=== PATIENT | female | born 2000 | race Caucasian/White ===

== ENCOUNTER 2023-07-14 08:07 | Emergency (ER) | payer OTHER ==
[2023-07-14 09:42] LABS: Absolute Eosinophils 0.1 K/uL (0-0.5); Absolute Lymphocytes (CBC) 1.4 K/uL (0.7-4.9); Absolute Monocytes 0.6 K/uL (0.1-1.3); Absolute Neutrophil 7.3 K/uL (1.8-8.0); Basophils % 0.4 % (0-1.3); Eosinophils % 0.9 % (0-4.4); Hematocrit 34.7 % (36.0-45.0); Lymphocytes % 14.6 % (15.3-44.8); MCHC 34.7 g/dL (32.0-36.0); MCV 86.6 fL (80-100); MPV 9.5 fL (7.6-11.3); Monocytes % 6.3 % (3.3-12.3); Neutrophils % 77.8 % (41.7-73.7); Platelets 235 thou/uL (152-406); RBC Red Blood Cell Count 4.01 M/uL (3.86-4.86); Red Cell Distribution Width 15.3 % (12.1-15.2)
[2023-07-14 09:47] LABS: Specific Gravity 1.018 (1.005-1.030); Sqamous Epithelial <5 /HPF (None Seen); Urine Bacteria <20 /HPF (<20); Urine Bilirubin NEGATIVE (Negative); Urine Blood Negative (Negative); Urine Clarity Turbid (Clear); Urine Color Light-Yellow (Yellow); Urine Culture Reflex Order NOT NEEDED; Urine Glucose NEGATIVE (Negative); Urine Ketones NEGATIVE (Negative); Urine Microscopic Reflex YN ORDER UMIC; Urine Nitrite NEGATIVE (Negative); Urine Protein NEGATIVE (Negative); Urine RBC <5 /HPF (None Seen); Urine Urobilinogen Normal (Normal); Urine pH 6.5 (5.0-7.0)
[2023-07-14 10:04] LABS: Albumin 3.1 g/dL (3.4-5.0); Albumin/Globulin Ratio 0.8 (1.1-1.8); Anion Gap 5.7 mEq/L (5.0-15.0); Bilirubin Total 0.4 mg/dL (0.2-1.0); Globulin 3.7 g/dL (2.3-3.5); Potassium 3.7 mEq/L (3.5-5.1); Protein, Total 6.8 g/dL (6.4-8.2)
--- NOTE | 2023-07-14 10:44 | RAD REPORT ---
EXAM DESCRIPTION: US - OB Limited - 07/14/2023 9:16 am CLINICAL HISTORY: ABD PAIN COMPARISON: No comparisons TECHNIQUE: Sonographic grayscale and color flow images of a first-trimester were obtained through approach. FINDINGS: A single live intrauterine is identified. Fetus in cephalic position. Femur length measures 33.6 millimeters, corresponding to gestational age of 20 weeks, 4 days. heart rate: 148 BPM. Subjectively normal amniotic fluid volume. Placenta has formed anteriorly. Internal cervical os is closed. No evidence of placenta previa. Left ovarian 5.0 x 4.2 x 3.9 cm anechoic dominant cyst. Right ovary is not well visualized. No suspic ious adnexal masses. No free fluid. IMPRESSION: 1. Single live intrauterine . 2. Calculated gestational age: 20 weeks, 4 days. Estimated due date by ultrasound: 11/27/2023. 3. Incidentally noted dominant left ovarian 5 cm anechoic cyst.
--- NOTE | 2023-07-14 11:29 | ER ---
Nurse's Notes [facility] Name: Billy Krishna Age: 22 yrs Sex: Female : 2000 Arrival Date: 07/14/2023 Time: 08:07 Bed 7 Private MD: Diagnosis: 20 weeks gestation of ;Abdominal pain in Presentation: 07/13 08:37 Chief complaint: Patient states: she started having right lower abdominal and back ap3 cramping early this morning that she reports as constant. patient reports normal urination, denies nausea and vomiting. Coronavirus screen: At this time, the client does not indicate any symptoms associated with coronavirus-19. Ebola Screen: No symptoms or risks identified at this time. Initial Sepsis Screen: Does the patient meet any 2 criteria? No. Patient's initial sepsis screen is negative. Does the patient have a suspected source of infection? No. Patient's initial sepsis screen is negative. Risk Assessment: Do you want to hurt yourself or someone else? Patient reports no desire to harm self or others. Onset of symptoms was July 14, 2023. 08:37 Method Of Arrival: Ambulatory ap3 08:37 Acuity: MARITZA 3 ap3 Triage Assessment: 08:41 General: Appears in no apparent distress. Behavior is calm, cooperative, appropriate ap3 for age. Pain: Complains of pain in left lower quadrant Pain currently is 7 out of 10 on a pain scale. Pain began this morning. Neuro: Level of Consciousness is awake, alert, obeys commands, Oriented to person, place, time, situation. Cardiovascular: Patient's skin is warm and dry. Respiratory: Airway is patent Respiratory effort is even, unlabored, Respiratory pattern is regular, symmetrical. GI: Abdomen is non-distended. Historical: - Allergies: 08:42 CEPHALOSPORINS; ap3 - Home Meds: 08:40 None [Active]; ap3 - PMHx: 08:40 None; ap3 - PSHx: 08:40 None; ap3 - Immunization history:: Adult Immunizations up to date. - Infectious Disease History:: Denies. - Social history:: Smoking status: Patient denies any tobacco usage or history of. Screenin:43 Abuse screen: Denies threats or abuse. Nutritional screening: No deficits noted. ap3 Tuberculosis screening: No symptoms or risk factors identified. 11:46 [facility] ED Fall Risk Assessment (Adult) History of falling in the last 3 months, ph including since admission No falls in past 3 months (0 pts) Confusion or Disorientation No (0 pts) Intoxicated or Sedated No (0 pts) Impaired Gait No (0 pts) Mobility Assist Device Used No (0 pt) Altered Elimination No (0 pt) Score/Fall Risk Level 0 - 2 = Low Risk Oriented to surroundings, Maintained a safe environment, Hourly rounding (assess needs \T\ fall precautionary measures) done. Assessment: 09:36 Neuro: No deficits noted. Level of Consciousness is awake, alert, obeys commands, ld2 Oriented to person, place, time, Crime Scene Photographer are equal bilaterally. Cardiovascular: No deficits noted. Respiratory: Airway is patent Trachea midline Respiratory effort is even, unlabored, Respiratory pattern is regular, symmetrical. GI: Abdomen is flat, non-distended, Bowel sounds present X 4 quads. Abd is soft Abdomen is tender to palpation in right lower quadrant and left lower quadrant Reports. GI: Pt states having bilateral lower abdominal cramping present x2 days. Pt denies vaginal discharge or bleeding. : No deficits noted. No signs and/or symptoms were reported regarding the genitourinary system. Denies burning with urination, discharge, vaginal bleeding. Musculoskeletal: No deficits noted. No signs and/or symptoms reported regarding the musculoskeletal system. 11:45 Reassessment: Patient appears in no apparent distress at this time. Patient and/or ph family updated on plan of care and expected duration. Pain level reassessed. Patient is alert, oriented x 3, equal unlabored respirations, skin warm/dry/pink. Vital Signs: 08:37 BP 124 / 76; Pulse 61; Resp 17; Temp 98.1; Pulse Ox 98% ; Weight 87.09 kg; ap3 11:27 BP 106 / 56; Pulse 71; Resp 18; Pulse Ox 99% on R/A; ph ED Course: 08:15 Patient arrived in ED. mg5 08:28 Kushal Flores DO is Attending Physician. ms3 08:40 Triage completed. ap3 08:43 Arm band placed on left wrist. ap3 08:48 Sirisha Ernandez, RN is Primary Nurse. ph 09:18 US OB Limited In Process Unspecified. EDMS 09:38 No apparent distress. Resting quietly. Awaiting lab results. ld2 09:38 Patient has correct armband on for positive identification. Allergy band placed. Bed in ld2 low position. Call light in reach. Side rails up X 1. Door closed. Noise minimized. Warm blanket given. Verbal reassurance given. 09:38 Inserted saline lock: 20 gauge in left antecubital area, using aseptic technique. Blood ld2 collected. 09:39 CBC with Diff Sent. ld2 09:39 CMP Sent. ld2 09:39 Urinalysis w/ reflexes Sent. ld2 11:45 No provider procedures requiring assistance completed. IV discontinued, intact, ph bleeding controlled, No redness/swelling at site. Pressure dressing applied. Administered Medications: No medications were administered Medication: 08:48 VIS not applicable for this client. ph Outcome: 11:29 Discharge ordered by . ms3 11:45 Discharged to home ambulatory, ph 11:45 Condition: good 11:45 Discharge instructions given to patient, Instructed on discharge instructions, follow up and referral plans. Demonstrated understanding of instructions, follow-up care, 11:46 Patient left the ED. ph Signatures: Dispatcher [employer] Sirisha De Leon RN RN ph Olivia Nassar RN RN ap3 Kushal Flores DO DO ms3 Katt Montgomery mg5 Raven Reyna, RN RN ld2 Corrections: (The following items were deleted from the chart) 08:41 08:40 Allergies: No Known Allergies; ap3 ap3
--- NOTE | 2023-07-14 11:30 | EDPHYS ---
Physician Documentation [facility] Name: Billy Krishna Age: 22 yrs Sex: Female : 2000 Arrival Date: 07/14/2023 Time: 08:07 Bed 7 Private MD: ED Physician Kushal Flores HPI: 07/13 09:15 This 22 yrs old Female presents to ER via Ambulatory with complaints of [id number], ms3 Abdominal Cramping, Back Pain. 09:15 22-year-old female G1, P0 with LMP of 02/20/2023 presents emergency department for lower ms3 abdominal cramping and back pain that began at 6:30 AM. Patient states the pain is worse with standing. Patient denies vaginal bleeding or loss of fluid.. Historical: - Allergies: 08:42 CEPHALOSPORINS; ap3 - Home Meds: 08:40 None [Active]; ap3 - PMHx: 08:40 None; ap3 - PSHx: 08:40 None; ap3 - Immunization history:: Adult Immunizations up to date. - Infectious Disease History:: Denies. - Social history:: Smoking status: Patient denies any tobacco usage or history of. ROS: 09:15 Constitutional: Negative for fever, and chills. Neck: Negative for injury, pain, and ms3 swelling, Cardiovascular: Negative for chest pain, and palpitations. Respiratory: Negative for shortness of breath, cough, wheezing, and pleuritic chest pain, 09:15 MS/Extremity: Negative for injury and deformity, Skin: Negative for injury, rash, and discoloration, 09:15 Abdomen/GI: Positive for abdominal pain, Exam: 09:15 Constitutional: This is a well developed, well nourished patient who is awake, alert, ms3 and in no acute distress. Head/Face: Normocephalic, atraumatic. Chest/axilla: Normal chest wall appearance and motion. Nontender with no deformity. Cardiovascular: Regular rate and rhythm with a normal S1 and S2. No gallops, murmurs, or rubs. Normal PMI, no JVD. No pulse deficits. Respiratory: Lungs have equal breath sounds bilaterally, clear to auscultation and percussion. No rales, rhonchi or wheezes noted. No increased work of breathing, no retractions or nasal flaring. Abdomen/GI: Soft, non-tender, with normal bowel sounds. No distension or tympany. No guarding or rebound. No evidence of tenderness throughout. Vital Signs: 08:37 BP 124 / 76; Pulse 61; Resp 17; Temp 98.1; Pulse Ox 98% ; Weight 87.09 kg; ap3 11:27 BP 106 / 56; Pulse 71; Resp 18; Pulse Ox 99% on R/A; ph MDM: 08:46 Patient medically screened. ms3 09:15 Differential diagnosis: Stanly huerta, UTI. ms3 14:06 Data reviewed: vital signs, nurses notes, lab test result(s), radiologic studies, and ms3 as a result, I will discharge patient. Counseling: I had a detailed discussion with the patient and/or guardian regarding the historical points, exam findings, and any diagnostic results supporting the discharge/admit diagnosis, lab results, radiology results, the need for outpatient follow up, to return to the emergency department if symptoms worsen or persist or if there are any questions or concerns that arise at home. Response to treatment: the patient's symptoms have markedly improved after treatment, and as a result, I will discharge patient. Special discussion: I discussed with the patient/guardian in detail that at this point there is no indication for admission to the hospital. It is understood, however, that if the symptoms persist or worsen the patient needs to return immediately for re-evaluation. ED course: Discussed ultrasound, labs with patient. Patient to follow-up with [facility] as scheduled. Patient understands and agrees with plan. All questions were answered. Return precautions discussed include worsening symptoms, or any other concerns. On reevaluation patient is alert and orient x 4, in no apparent distress, nontoxic-appearing, ambulatory emerged from, speaking full sentences.. 07/13 08:46 Order name: CBC with Diff; Complete Time: 10:22 ms3 07/13 08:46 Order name: CMP; Complete Time: 10:22 ms3 07/13 08:46 Order name: Urinalysis w/ reflexes; Complete Time: 10:22 ms3 07/13 08:46 Order name: US OB Limited; Complete Time: 11:11 ms3 07/13 08:46 Order name: IV Saline Lock; Complete Time: 09:39 ms3 07/13 08:46 Order name: Labs collected and sent; Complete Time: 09:39 ms3 Administered Medications: No medications were administered Disposition Summary: 07/14/23 11:29 Discharge Ordered Notes: Location: Home ms3 Condition: Stable ms3 Diagnosis - 20 weeks gestation of ms3 - Abdominal pain in ms3 Followup: ms3 - With: Private Physician - When: 2 - 3 days - Reason: Recheck today's complaints Discharge Instructions: - Discharge Summary Sheet ms3 - Abdominal Pain During ms3 Forms: - Medication Reconciliation Form ms3 - Antibiotic Education ms3 - Prescription Opioid Use ms3 - Patient Portal Instructions ms3 - Leadership Thank You Letter ms3 Signatures: Dispatcher [employer] Olivia Walker RN RN ap3 Kushal Flores DO DO ms3 Corrections: (The following items were deleted from the chart) 08:41 08:40 Allergies: No Known Allergies; ap3 ap3
[2023-07-14 12:22] VITALS: BP 106/56; TEMP 98.1; O2SAT 99
== END 2023-07-14 11:46 | disposition home or self-care (01) ==
LOC: ER 08:07
DX: O26.892 Other specified pregnancy related conditions, second trimester (principal); Z3A.20 20 weeks gestation of pregnancy; Z88.3 Allergy status to other anti-infective agents
CPT/HCPCS: 36415; 76815; 80053; 81001; 85025